=== PATIENT | female | born 1960 | race Caucasian/White ===

== ENCOUNTER 2024-03-06 09:09 | Day surgery (SDC) | payer MEDICARE, OTHER, SELFPAY ==
--- NOTE | 2024-03-06 | PATH_ITS ---
[facility] Accession Number: [id number] No. of containers..02 Tissue . 01 Material submitted: . PART A: sigmoid colon - SIGMOID POLYP PART B: colon - RECTAL POLYP X 2 . 01 Diagnosis: A. SIGMOID COLON POLYP: Hyperplastic polyp. . B. RECTAL POLYPS: Hyperplastic polyp x2. MRV 03/12/2024 1637 Local . 01 Electronically signed: . Clive Whittington MD, PhD, Pathologist NPI- [id number] . 01 Gross description: . Part A: SIGMOID POLYP: Received in formalin is 1 fragment(s) of villegas, soft tissue measuring 0.4 x 0.2 x 0.2 cm submitted entirely in 1 cassette(s) Part B: RECTAL POLYP X 2: Received in formalin are 2 fragment(s) of villegas, soft tissue measuring 0.2 x 0.2 x 0.2 cm to 0.3 x 0.3 x 0.3 cm submitted entirely in 1 cassette(s) /LEONID 03/11/2024 1749 Local . 01 Pathologist provided ICD-10: K63.5, K62.1 . 01 CPT . 029192, 561124 Specimen Comment: A courtesy copy of this report has been sent to [phone] Performed at: [address] [facility] [address], [place], [place] [id number] MD Kirk Pearson MD Phone: [phone]
[2024-03-06 09:35] VITALS: BP 118/66; PULSE 55; RESP 16; TEMP 36.8; O2SAT 98
[2024-03-06] MEDS: LACTATED RINGERS 1,000 ML 42 ML IV (09:46)
--- NOTE | 2024-03-06 09:48 | PM.HP.1 ---
History of Present Illness History of Present Illness Date Patient Seen: 03/06/24 Time Patient Seen: 09:49 Chief complaint: Colonoscopy Narrative: Ada is a 63-year-old woman who is here for colonoscopy. She has never had a colonoscopy before. No family history of colon cancer. [facility] Social History Smoking Status: Former smoker Meds Home Medications and Allergies Home Medications Medication Instructions Recorded Confirmed Type peg 3350-sod sulf,[id number]-[id number]-[id number] 1,000 ml PO DIRECTED #2,000 mL 02/18/24 Rx 178.7-7.3-0.5-1.12-0.9 gram oral soln (Suflave) Probiotic 94 mcg 03/06/24 History cholecalciferol (vitamin D3) 50 100 mcg PO DAILY 03/06/24 03/06/24 History mcg (2,000 unit) tablet (Vitamin D3) vitamin B12 500 mcg-folic acid 400 2 tab PO DAILY 03/06/24 03/06/24 History mcg tablet Allergies Allergy/AdvReac Type Severity Reaction Status Date / Time No Known Drug Allergies Allergy Verified 03/06/24 09:31 Exam Vital Signs (past 8 hours): - 03/06/24 09:35 Temperature 98.3 F Pulse Rate 55 L Respiratory Rate 16 Blood Pressure 118/66 Pulse Oximetry 98 Oxygen Delivery Method Room Air Oxygen Delivery Method Room Air Const General: No acute distress Resp Effort & Inspection: normal respiratory effort Assessment & Plan Assessment and plan (1) Colon cancer screening: Status: Acute Plan We reviewed the risks and benefits of colonoscopy for colon cancer screening and she would like to proceed.
[2024-03-06 10:24] VITALS: BP 111/54; PULSE 68; RESP 14; TEMP 37; O2SAT 96
[2024-03-06 10:27] VITALS: BP 114/56; PULSE 59; RESP 16; O2SAT 98
--- NOTE | 2024-03-06 10:27 | PM.OP.COLON ---
Operative Date/Time/Diagnoses Date of procedure: 03/06/24 Time of procedure: 10:27 Pre-op diagnosis: Colon cancer screening Post-op diagnosis: same Procedure & Clinicians Study performed: Colonoscopy Same procedure as scheduled: Yes Surgeon: Willard Erickson Procedure Notes Procedure in detail: Surgeon: Willard Erickson MD Anesthesia: Meme Ayala MD Procedure: The patient was brought to the endoscopy suite, placed in left lateral decubitus position. The patient was connected to monitoring devices. A time-out was performed. Sedation was administered. Once the patient was adequately sedated, a digital rectal exam was performed and was normal. The scope was then inserted and advanced to the cecum where the appendiceal orifice was identified and photographed. The terminal ileum was intubated and no abnormalities were identified. The scope was then slowly withdrawn over greater than 6 minutes. The mucosa was thoroughly inspected. There were rare scattered diverticula in the proximal colon. There was 4 mm sigmoid polyp removed with the Jumbo forceps. There were 2 4 mm rectal polyps removed with the Jumbo forceps. The scope was retroflexed in the rectum. No other abnormalities were noted The scope was straightened and removed. The patient was awakened and brought to recovery. Scope withdrawal time: 8 minutes Sedation time: 8 minutes EBL: 15 minutes Findings: Rare proximal diverticula, 1 small polyp in the sigmoid and 2 small polyps in the rectum Post-procedure Disposition: PACU
[2024-03-06 10:30] VITALS: BP 118/76; PULSE 60; RESP 14; O2SAT 98
[2024-03-06 10:38] VITALS: BP 116/78; PULSE 60; RESP 16; O2SAT 98
== END 2024-03-06 10:57 | disposition home or self-care (01) ==
PROVIDERS: PCP Registered Nurse; Referring Provider Surgery; Visit Provider Surgery
PROC: 0DJD8ZZ Inspection of Lower Intestinal Tract, Via Natural or Artificial Opening Endoscopic (ICD-10-PCS; CPT 45378; principal; 2024-03-06 10:15)
DX: Z12.11 Encounter for screening for malignant neoplasm of colon (principal); K57.30 Diverticulosis of large intestine without perforation or abscess without bleeding; K63.5 Polyp of colon; K62.1 Rectal polyp
CPT/HCPCS: 45380; J2704

== ENCOUNTER → 2025-08-18 11:42 | Outpatient (CLI) | payer MEDICARE, OTHER, SELFPAY ==
--- NOTE | 2025-08-18 11:45 | DI.RAD.S_ITS ---
PROCEDURE: XR HIP W PEL IF DONE BILAT 2V
== END ==
PROVIDERS: PCP Registered Nurse; Referring Provider Registered Nurse; Visit Provider Registered Nurse
DX: M70.61 Trochanteric bursitis, right hip (principal); M16.0 Bilateral primary osteoarthritis of hip; M47.816 Spondylosis without myelopathy or radiculopathy, lumbar region
CPT/HCPCS: 73521